=== PATIENT | male | born 1995 | race Caucasian/White ===

== ENCOUNTER 2017-07-08 19:04 | Emergency (ER) | payer BC, OTHER ==
[~2017-07-08] VITALS: Ht 170.2 cm; Wt 72.6 kg
[2017-07-08 20:37] LABS: CALCIUM 9.7 mg/dL (8.5-10.1); CARBON DIOXIDE 23.2 mmol/L (21-32); CHLORIDE SERUM 106 mmol/L (98-107); CREATININE SERUM 1.1 mg/dL (0.7-1.3); GFR1 > 60 mL/min; GLUCOSE SERUM 116 mg/dL (74-106); POTASSIUM SERUM 3.2 mmol/L (3.5-5.1); SODIUM SERUM 142 mmol/L (136-145)
[2017-07-08 20:39] LABS: BASOPHIL % 0.2 % (0-2); PLATELET COUNT 250 x10^3mcL (130-400); RED CELL DISTRIBUTION WIDTH 12.7 % (11.5-14.5)
[2017-07-08 20:42] LABS: ALBUMIN 4.6 g/dL (3.4-5.0); ALKALINE PHOSPHATASE 96 U/L (46-116); ALT/SGPT 26 U/L (16-63); AST/SGOT 19 U/L (15-37); BILIRUBIN TOTAL 0.34 mg/dL (0.20-1.00)
[2017-07-08 20:54] LABS: TOTAL PROTEIN, SERUM 8.5 g/dL (6.4-8.2)
[2017-07-08 21:47] VITALS: BP 137/75
== END 2017-07-08 21:30 | disposition home or self-care (01) ==
LOC: ED 19:04
PROVIDERS: Emergency Medicine
DX: R56.9 Unspecified convulsions (principal)
CPT/HCPCS: J7030

== ENCOUNTER 2017-11-07 10:39 | Emergency (ER) | payer BC, OTHER ==
[~2017-11-07] VITALS: Ht 170.2 cm; Wt 81.6 kg
[2017-11-07 10:50] VITALS: BP 142/87
== END 2017-11-07 12:51 | disposition home or self-care (01) ==
LOC: ED 10:39
DX: R05 Cough (principal); J30.9 Allergic rhinitis, unspecified

== ENCOUNTER 2017-11-11 17:53 | Emergency (ER) | payer BC, OTHER ==
[~2017-11-11] VITALS: Ht 170.2 cm; Wt 82.5 kg
[2017-11-11 17:57] VITALS: Ht 170.2 cm; Wt 82.5 kg
[2017-11-11 19:30] VITALS: BP 135/84
== END 2017-11-11 19:30 | disposition left against medical advice (07) ==
LOC: ED 17:53
DX: Z53.21 Procedure and treatment not carried out due to patient leaving prior to being seen by health care provider (principal)

== ENCOUNTER 2017-12-03 14:26 | Emergency (ER) | payer BC, OTHER ==
[~2017-12-03] VITALS: Ht 172.7 cm; Wt 81.6 kg
[2017-12-03 14:50] VITALS: BP 119/82; Ht 172.7 cm; Wt 81.6 kg
== END 2017-12-03 17:00 | disposition home or self-care (01) ==
LOC: ED 14:26
DX: F41.9 Anxiety disorder, unspecified (principal)
CPT/HCPCS: Q0162

== ENCOUNTER 2018-05-31 08:08 | Emergency (ER) | payer BC, OTHER ==
[~2018-05-31] VITALS: Ht 167.6 cm; Wt 83.9 kg
[2018-05-31 08:10] VITALS: Ht 167.6 cm; Wt 83.9 kg
[2018-05-31 09:00] LABS: BASOPHIL % 0.3 % (0-2); PLATELET COUNT 185 x10^3mcL (130-400); RED CELL DISTRIBUTION WIDTH 12.6 % (11.5-14.5)
[2018-05-31 09:09] LABS: AMPHETAMINE QUAL UR NONE DETECTED (See below)
[2018-05-31 09:14] LABS: CALCIUM 8.8 mg/dL (8.5-10.1); CARBON DIOXIDE 29.3 mmol/L (21-32); CHLORIDE SERUM 103 mmol/L (98-107); CREATININE SERUM 1.1 mg/dL (0.7-1.3); GFR1 > 60 mL/min; GLUCOSE SERUM 144 mg/dL (74-106); POTASSIUM SERUM 3.1 mmol/L (3.5-5.1); SODIUM SERUM 138 mmol/L (136-145)
[2018-05-31 09:19] LABS: ALBUMIN 4.3 g/dL (3.4-5.0); ALKALINE PHOSPHATASE 108 U/L (46-116); ALT/SGPT 56 U/L (16-63); AST/SGOT 32 U/L (15-37); BILIRUBIN TOTAL 0.3 mg/dL (0.20-1.00)
[2018-05-31 09:28] LABS: TOTAL PROTEIN, SERUM 8.5 g/dL (6.4-8.2)
[2018-05-31 11:27] VITALS: BP 128/83
== END 2018-05-31 12:14 | disposition home or self-care (01) ==
LOC: ED 08:08
PROVIDERS: Emergency Medicine
DX: T40.2X1A Poisoning by other opioids, accidental (unintentional), initial encounter (principal); Y92.89 Other specified places as the place of occurrence of the external cause
CPT/HCPCS: 36415; G0480; Q0092

== ENCOUNTER 2019-02-04 10:36 | Inpatient (IN) | payer BC, OTHER ==
[~2019-02-04] VITALS: Ht 170.2 cm; Wt 93.4 kg
[2019-02-04 10:37] VITALS: Ht 170.2 cm; Wt 93.4 kg
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
--- NOTE | 2019-02-04 11:02 | NUR ---
ORIGINAL 5150 HOLD OBTAINED FROM [employer] OFFICER & PLACED ON CHART.
[2019-02-04 11:14] LABS: BASOPHIL % 0.4 % (0-2); PLATELET COUNT 185 x10^3mcL (130-400); RED CELL DISTRIBUTION WIDTH 12.1 % (11.5-14.5)
[2019-02-04 11:19] LABS: ALBUMIN 4.3 g/dL (3.4-5.0); ALKALINE PHOSPHATASE 106 U/L (46-116); ALT/SGPT 42 U/L (16-63); AST/SGOT 31 U/L (15-37); BILIRUBIN TOTAL 0.5 mg/dL (0.20-1.00); CALCIUM 8.7 mg/dL (8.5-10.1); CARBON DIOXIDE 25.1 mmol/L (21-32); CHLORIDE SERUM 103 mmol/L (98-107); CHOLESTEROL 199 mg/dL (<200); GFR1 > 60 mL/min; GLUCOSE SERUM 160 mg/dL (74-106); SODIUM SERUM 140 mmol/L (136-145); TOTAL PROTEIN, SERUM 7.7 g/dL (6.4-8.2)
[2019-02-04 11:24] LABS: POTASSIUM SERUM 2.8 mmol/L (3.5-5.1)
--- NOTE | 2019-02-04 12:00 | NUR ---
PT TOLERATES JIMENEZ CATH INSERTION WELL. RESUME SLEEPING. WILL CONTINUE TO MONITOR.
--- NOTE | 2019-02-04 12:16 | NUR ---
MEDICATED ORDERED. PLEASE SEE EMR.
[2019-02-04 13:05] LABS: AMPHETAMINE QUAL UR POSITIVE (See below)
--- NOTE | 2019-02-04 14:15 | NUR ---
REPORT GIVEN TO SHARONDA VALLEJO BY SHARONDA MERCEDES TO ASSUME CARE OF PT.
--- NOTE | 2019-02-04 14:17 | NUR ---
PT TRANSFERED TO ICU VIA GURNEY ACCOMPANIED BY NURSE AND EMT. BILLING DEPARTMENT SUPERVISOR ATTACHED. VSS. 20G RAC IV AND IO TO RT TIBIA INTACT. NO S/S OF INFILTRATION NOTED. PT DENIES PAIN OR DISCOMFORT TO SITE.
--- NOTE | 2019-02-04 14:20 | NUR ---
PT TRANSFER FROM ED VIA [facility]. WILLY ASSISTS TO TRANSFER PT FROM [facility] TO BED WITH TRUNG SAGE RN, [facility], FANY RN AND MYSELF. PT IS AAOX4 ABLE TO FOLLOW VERBAL COMMANDS AND VERBALIZE NEEDS. PT DENIES JON. BL PUPILS REACTIVE TO LIGHT 3MM, SLUGGISH. PT RECIEVING 2LO2 VIA NASAL CANNULA, CTA TO BL LUNG LOPEZ. EVEN CHEST RISE AND UNLABORED BREATHING. BS ACTIVE X4 QUADRANTS NONTENDER PALPATIONS TO ABD. NO SIGNS OF BM. PT DENIES N/V/D. JIMENEZ CATH DRAINING WELL BY GRAVITY, CLOUDY STRAW COLOR OUTPUT. NO EDEMA NOTED. PT ARRIVED WITH K @25ML/HR AND NS AT 100ML/HR TO RAC. BED AT LOWEST POSITION AND CALL LIGHT WITHIN REACH.
--- NOTE | 2019-02-04 14:30 | NUR ---
MAGO MCDONOUGH REMOVED IO TO R TIBIA WITH PROPER TECHNIUQES, PRESSURE APPLIED, NO SIGNS OF BLEED. IO CATH INTACT. PT TOLERATED PROCEDURE WELL, NO SIGNS OF DISTRESS.
[2019-02-04 14:38] LABS: UA SPECIFIC GRAVITY 1.025 (1.005-1.035); microscopic required? YES; urine erythrocyte NEGATIVE (NEGATIVE)
[2019-02-04 14:55] LABS: MAGNESIUM 2.2 mg/dL (1.8-2.4); PHOSPHOROUS 5.5 mg/dL (2.5-4.9)
[2019-02-04 15:18] VITALS: BP 158/89
--- NOTE | 2019-02-04 16:01 | NUR ---
DR. ZAYAS AT BEDSIDE ASSESSING PT.
--- NOTE | 2019-02-04 16:27 | NUR ---
MADE AWARE TO DR. ZAYAS LACTIC ACID 2.7, RECIEVED NO NEW ORDERS.
[2019-02-04 16:29] VITALS: BP 151/88
--- NOTE | 2019-02-04 17:00 | NUR ---
PT TOOK OFF B/P CUFFS.
--- NOTE | 2019-02-04 17:31 | NUR ---
PT IS ABLE TO SIT UP IN BED BY SELF TO SET DINNER TRAY. BED AT LOWEST POSITION AND CALL LIGHT WITHIN REACH.
--- NOTE | 2019-02-04 19:07 | NUR ---
RECEIVED REPORT FROM YONI RN. WILL CONTINUE CARE AND TREATMENT PLAN.
[2019-02-04 19:20] VITALS: BP 115/71
--- NOTE | 2019-02-04 20:54 | NUR ---
PAULY FROM [facility] CONTROL CALLED. UPDATES PROVIDED ON PT. ALL QUESTIONS AND CONCERNS ADDRESSED.
[2019-02-04 23:23] VITALS: BP 116/55
--- NOTE | 2019-02-04 23:23 | NUR ---
PT COMFORTABLE RESTING IN BED. BREATHING E/U. NO SOB OR RESPIRATORY DISTRESS NOTED. PT STATES NO PAIN AT THIS TIME. NAD NOTED. SAFETY PRECAUTIONS MAINTAINED. PT WITHIN LINE OF SIGHT OF NURSES STATION. WILL CONTINUE TO MONITOR.
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
--- NOTE | 2019-02-05 00:15 | NUR ---
DR. BURROUGHS CALLED IN REGARDS TO PATIENT'S AGRESSION AND AGITATION. GEODONE PRESCRIBED. WILL CARRY OUT ORDER. STATED SHE WILL BE DOWN TO TALK TO PATIENT.
--- NOTE | 2019-02-05 00:27 | NUR ---
SHANNEN ADAME, A AND P MECHANIC AT BEDSIDE TALKING TO PATIENT IN REGARDS TO 5150 HOLD. PT BECOMING AGITATED, LUCRECIA FORDE PROVIDED TO PATIENT.
--- NOTE | 2019-02-05 00:45 | NUR ---
DR. BURROUGHS AT BEDSIDE TALKING TO PATIENT IN REGARDS TO 5150 HOLD, AND THAT PSYCHIATRIST IS ONLY PERSON WHO CAN TAKE PATIENT OFF HOLD FOR CONCERNS OF HIS SAFETY. PATIENT REQUESTING MEDICATION TO "HELP HIM SLEEP". PRESCRIBED 1 MG ATIVAN, WILL CARRY OUT ORDER. WILL CONTINUE TO MONITOR PATIENT. PATIENT APPEARS LESS AGITATED.
--- NOTE | 2019-02-05 01:35 | NUR ---
MOTHER CALLED TO PROVIDE THEIR CONTACT INFORMATION: MOTHER- FATHER-
--- NOTE | 2019-02-05 02:24 | NUR ---
PROVIDED PT WITH 1 MG OF ATIVAN FOR INCREASED RESTLESSNESS. WILL CONTINUE TO MONITOR.
[2019-02-05 03:33] VITALS: BP 129/73
--- NOTE | 2019-02-05 04:41 | NUR ---
RAILROAD CRANE OPERATOR AT BEDSIDE FOR BLOOD DRAW.
[2019-02-05 04:58] LABS: PLATELET COUNT 195 x10^3mcL (130-400); RED CELL DISTRIBUTION WIDTH 12.6 % (11.5-14.5)
[2019-02-05 05:12] LABS: ALBUMIN 3.5 g/dL (3.4-5.0); ALKALINE PHOSPHATASE 95 U/L (46-116); ALT/SGPT 38 U/L (16-63); AST/SGOT 23 U/L (15-37); BILIRUBIN TOTAL 0.96 mg/dL (0.20-1.00); CALCIUM 8.5 mg/dL (8.5-10.1); CARBON DIOXIDE 24.9 mmol/L (21-32); CHLORIDE SERUM 104 mmol/L (98-107); GFR1 > 60 mL/min; GLUCOSE SERUM 88 mg/dL (74-106); POTASSIUM SERUM 3.8 mmol/L (3.5-5.1); SODIUM SERUM 138 mmol/L (136-145); TOTAL PROTEIN, SERUM 6.5 g/dL (6.4-8.2)
[2019-02-05 05:22] LABS: MAGNESIUM 1.9 mg/dL (1.8-2.4); PHOSPHOROUS 3.2 mg/dL (2.5-4.9)
--- NOTE | 2019-02-05 06:06 | NUR ---
DR. ZAYAS AT BEDSIDE ASSESSING PT. UPDATES PROVIDED.
--- NOTE | 2019-02-05 07:23 | NUR ---
REPORT GIVEN TO ISABELA MCDONOUGH. ALL QUESTIONS AND CONCERNS ADDRESSED.
[2019-02-05 07:35] VITALS: BP 132/72
--- NOTE | 2019-02-05 07:35 | NUR ---
THE PATIENT AWAKE AND ORIENTED TO PERSON, PLACE AND TIME. PATIENT DENIES SHORTNESS OF BREATH OR NAUSEA/VOMITING AT THIS TIME. PATIENT STATED HAVING SOME BODY ACHE 3/10 WITH MOVEMENT; HOWEVER, PATIENT REFUSES TYLENOL 650 MG PO WHEN OFFERED. DIVERSIONAL ACTIVITIES WERE INSTRUCTED TO THE PATIENT. CONTINUE TO MONITOR AND ASK DOCTOR FOR FURTHER ORDER. TELE # 5 READS SINUS RHYTHMS AT THIS TIME. IVF NS VIA IV SITE TO RAC. JIMENEZ CATH CATH GRAVITY DRAINING YELLOW URINE. CALL LIGHT WITHIN REACH. SIDE RAILS UP X2. BED IS AT LOWEST POSITION.
--- NOTE | 2019-02-05 09:09 | NUR ---
PATIENT REFUSED TO WEAR FULLY MONITOR EQUIPMENT SO THAT THE VS WOULD BE RECORED EVERY HOUR. EDUCATION WAS PROVIDED TO THE PATIENT RELATED TO NEED OF VS MONITORING EVERY HOUR. THE PATIENT AGREED TO HAVE VS CHECKED EVERY 4HR UPON ASSESSMENT PERFORMENT.
--- NOTE | 2019-02-05 10:03 | NUR ---
DR. ARCOS IN TO SEE THE PATIENT. UPDATE WAS PROVIDED TO THE DOCTOR.
--- NOTE | 2019-02-05 10:10 | NUR ---
DR ARCOS AT BEDSIDE TO ASSESS PATIENT. UPDATES PROVIDED WITH POC DISCUSSED. PATIENT COOPERATIVE WITH CARE AT THIS TIME.
--- NOTE | 2019-02-05 10:35 | NUR ---
DR. WEBB AND THE TEAM ARE MAKING ROUND TO SEE THE PATIENT.
--- NOTE | 2019-02-05 10:40 | NUR ---
DR. PRESCOTT IS AT BEDSIDE SEEING THE PATIENT.
--- NOTE | 2019-02-05 10:45 | NUR ---
JIMENEZ CATH WAS REMOVED WITH CATH TIP INTACT. 800ML OF YELLOW URINE OUTPUT IN JIMENEZ BAG.
[2019-02-05 11:18] VITALS: BP 149/73
--- NOTE | 2019-02-05 11:26 | NUR ---
TORADOL 30MG IVP WAS ADMINISTERED TO THE PATIENT FOR C/O ACHING PAIN TO CHEST MUSCLE 5/10.
[2019-02-05 11:35] VITALS: BP 149/73
--- NOTE | 2019-02-05 12:02 | NUR ---
REASSESSING THE PAIN LEVEL AFTER TORADOL WAS ADMINISTERED TO THE PATIENT AT 1126; THE PATIENT STATED THE PAIN IS BETTER AND TOLERABLE 2/10.
--- NOTE | 2019-02-05 12:02 | NUR ---
DISCHARGE INSTRUCTION IMPLEMENTED TO THE PATIENT. CONCERNS WERE ADDRESSED. IV SITE AT [facility] WAS REMOVED WITH CATH TIP INTACT. THE PATIENT IS WAITING FOR HIS FATHER TO COME AND PICK HIM UP.
--- NOTE | 2019-02-05 12:40 | NUR ---
THE FATHER CAME TO BEDSIDE. TELE AND ID BAND WERE REMOVED. THE PATIENT CHANGED TO HIS OWN CLOTHES BEFORE ESCORTED TO THE LOBBY. THE PATIENT WAS ACCOMPANIED BY HIS FATHER IN STABLE CONDITION. THE PATIENT DID NOT HAVE BELONGINGS WHEN HE CAME TO THE ROOM.
== END 2019-02-05 12:35 | disposition home or self-care (01) | DRG 917 ==
LOC: ED 10:36 → IC 13:47
PROVIDERS: Specialist; ADMIT Family Medicine
DX: T47.8X1A Poisoning by other agents primarily affecting gastrointestinal system, accidental (unintentional), initial encounter (principal); G92 Toxic encephalopathy; J96.01 Acute respiratory failure with hypoxia; N17.0 Acute kidney failure with tubular necrosis; E87.2 Acidosis; T40.601A Poisoning by unspecified narcotics, accidental (unintentional), initial encounter; T40.5X1A Poisoning by cocaine, accidental (unintentional), initial encounter; E87.6 Hypokalemia; E83.39 Other disorders of phosphorus metabolism; E78.5 Hyperlipidemia, unspecified; F41.1 Generalized anxiety disorder; T43.621A Poisoning by amphetamines, accidental (unintentional), initial encounter; T42.4X1A Poisoning by benzodiazepines, accidental (unintentional), initial encounter; E66.9 Obesity, unspecified; Y92.89 Other specified places as the place of occurrence of the external cause; Z68.32 Body mass index [BMI] 32.0-32.9, adult; Z71.3 Dietary counseling and surveillance
CPT/HCPCS: 36600; 82962; 83880; 94150; G0480; J1885; J2060; J3480; J7030; Q0092

== ENCOUNTER 2020-08-20 19:56 | Emergency (ER) | payer OTHER ==
[~2020-08-20] VITALS: Ht 170.2 cm; Wt 104.3 kg
[2020-08-20 20:09] VITALS: Ht 170.2 cm; Wt 104.3 kg
[2020-08-20 20:35] LABS: BASOPHIL % 0.4 % (0-2); PLATELET COUNT 215 x10^3mcL (130-400); RED CELL DISTRIBUTION WIDTH 12.6 % (11.5-14.5)
[2020-08-20 20:42] LABS: CALCIUM 8.5 mg/dL (8.5-10.1); CARBON DIOXIDE 28.9 mmol/L (21-32); CHLORIDE SERUM 101 mmol/L (98-107); CREATININE SERUM 1.3 mg/dL (0.7-1.3); GFR1 > 60 mL/min; GLUCOSE SERUM 153 mg/dL (74-106); POTASSIUM SERUM 4.4 mmol/L (3.5-5.1); SODIUM SERUM 137 mmol/L (136-145)
[2020-08-20 20:46] LABS: ALBUMIN 3.8 g/dL (3.4-5.0); ALKALINE PHOSPHATASE 116 U/L (46-116); ALT/SGPT 39 U/L (16-63); AST/SGOT 48 U/L (15-37); C REACTIVE PROTEIN 5.4 mg/dL (<=0.9); TOTAL PROTEIN, SERUM 7.4 g/dL (6.4-8.2)
[2020-08-20 21:05] LABS: ERYTHROCYTE SED RATE 11 mm/hr (0-15)
[2020-08-21 04:13] LABS: AMPHETAMINE QUAL UR NONE DETECTED (See below)
[2020-08-21 15:06] VITALS: BP 126/78
--- NOTE | 2020-08-22 07:33 | NUR ---
ECHOCARDIOGRAM NOT DONE-DEPARTED
== END 2020-08-21 15:06 ==
LOC: ED 19:56
PROVIDERS: Student in an Organized Health Care Education/Training Program
DX: S05.01XA Injury of conjunctiva and corneal abrasion without foreign body, right eye, initial encounter (principal); T40.601A Poisoning by unspecified narcotics, accidental (unintentional), initial encounter; Y92.89 Other specified places as the place of occurrence of the external cause; Z20.828 Contact with and (suspected) exposure to other viral communicable diseases
CPT/HCPCS: G0480; U0003

== ENCOUNTER 2020-08-22 20:02 | Emergency (ER) | payer OTHER ==
[~2020-08-22] VITALS: Ht 170.2 cm; Wt 101.2 kg
[2020-08-22 20:04] VITALS: Ht 170.2 cm; Wt 101.2 kg
[2020-08-22 21:25] VITALS: BP 134/83
== END 2020-08-22 21:25 | disposition home or self-care (01) ==
LOC: ED 20:02
DX: S05.01XA Injury of conjunctiva and corneal abrasion without foreign body, right eye, initial encounter (principal); L03.213 Periorbital cellulitis; X58.XXXA Exposure to other specified factors, initial encounter; Y93.89 Activity, other specified; Y92.89 Other specified places as the place of occurrence of the external cause; Y99.8 Other external cause status